=== PATIENT | female | born 2000 | race Caucasian/White ===

== ENCOUNTER 2020-10-19 22:08 | Emergency (ER) | payer MEDICAID, SELFPAY ==
[2020-10-19 22:10] VITALS: BP 144/107; PULSE 100; RESP 18; TEMP 37.1; O2SAT 97; BMI 32.8
--- NOTE | 2020-10-19 22:25 | XR_ITS ---
PROCEDURE INFORMATION: Exam: XR Left Wrist Exam date and time: 10/19/2020 10:25 PM Age: 20 years old Clinical indication: Injury or trauma; Fall; Blunt trauma (contusions or hematomas); Injury date: 10/19/2020; Injury details: Fell off horse pain left wrist; Patient HX: Fell pain left wrist TECHNIQUE: Imaging protocol: XR Left wrist. Views: 3 or more views. COMPARISON: No relevant prior studies available. FINDINGS: Bones/joints: Normal. Soft tissues: Normal. IMPRESSION: No acute findings.
--- NOTE | 2020-10-19 22:34 | [facility].EDUPEXT ---
ED Disposition Clinical Impression: Left wrist sprain Qualifiers: Encounter type: initial encounter Qualified Code(s): S63.502A - Unspecified sprain of left wrist, initial encounter Disposition: Home, Self-Care Condition on Discharge: Good Instructions: DI for Wrist Strain Additional Instructions: advil/tyenol and see pcp for follow up Referrals: Provider,Blake, [Primary Care Provider] - Koko Arce MD [Staff Physician] - - Critical Care Critical Care Time: No Attestation: On 10/19/20, the high probability of a clinically significant, sudden or life threatening deterioration of the following system(s) required my full and direct attention, intervention and personal management. The time I documented below is in addition to time spent performing reported procedures but includes the following listed in this critical care notation. Medical Decision Making - Medical Records Medical records reviewed: Yes: I reviewed the patient's medical records. - Tom Inquiry Pt receiving controlled substance: No Vital Signs: 10/19/20 22:10 Temperature 98.8 F Temperature Source Oral Pulse Rate [Right] 100 H Respiratory Rate 18 Blood Pressure [Right Arm] 144/107 H Blood Pressure Mean [Right Arm] 119 02 Sat by Pulse Oximetry 97 - Radiology Data #1 Image(s): Wrist Image Reviewed: Yes I reviewed the patient's radiology image, Yes I have reviewed radiologist's interpretation Preliminary Findings: No Fracture Seen Medical Decision Narrative: no fx and will wear splint and advil/tyenol and see pcp for follow up Upper Extremity HPI - General Chief Complaint: Extremity Injury, Upper Stated Complaint: AO 10/19@2100 fell off horse L arm injury\ Time Seen by Provider: 10/19/20 22:30 Mode of Arrival: Ambulatory Source of Information: Patient, Medical Record Limitations: No Limitations Description of Symptoms (Recalled from ER Triage Doc. by RN): pt state fell off horse and and landed with lt wrist out pt c/o lt wrist pain - History of Present Illness HPI narrative: fell off horse with lt wrist injury - no other c/o MD complaint: injury to: left, wrist Onset (ago): hour(s) Other Extremity Injury: Left: wrist Other injuries: none Handedness: right Place: home Severity: moderate Context: fall Associated symptoms: denies other symptoms - Related Data Home Medications Medication Instructions Recorded Confirmed No Known Home Medications 10/19/20 10/19/20 Allergies Allergy/AdvReac Type Severity Reaction Status Date / Time amoxicillin [From Augmentin] Allergy Verified 10/19/20 22:24 clavulanic acid Allergy Verified 10/19/20 22:24 [From Augmentin] [facility] History - Hepatitis A Screen Drug use history?: No High risk sexual behaviors?: No History of sexually transmitted infection?: No Currently employed?: No Childcare worker?: No Do you have indoor plumbing?: No Do you have electricity?: No Attestation statement:: This patient has been screened for Hepatitis A risk factors. I have reviewed the patient's past medical history: Yes - Social History Alcohol Intake: never Occupational Status: employed ROS Obtained: Yes All systems reviewed & no additional complaints - Constitutional Constitutional: Denies fever(s) - Eyes Eyes: Denies change in vision - ENT Ears, Nose, Mouth, and Throat: Denies sore throat - Cardiovascular Cardiovascular: Denies chest pain - Respiratory Respiratory: Denies cough - Gastrointestinal Gastrointestingal: Denies: abdominal pain - Genitourinary Female Genitourinary: Denies abnormal vaginal bleeding - Musculoskeletal Musculoskeletal: Reports as per HPI, Reports joint pain, Denies deformity, Reports joint swelling, Reports limited range of motion - Integumentary/Breasts Skin/Breast: Denies rash - Neurologic Neurologic: Denies focal weakness Physical Exam - General General appearance: alert - Head Head exam: no
[2020-10-20 00:06] VITALS: BP 125/75; PULSE 83; RESP 18; TEMP 36.8; O2SAT 98
== END 2020-10-20 00:07 | disposition home or self-care (01) ==
PROVIDERS: Emergency Provider Emergency Medicine
DX: S63.502A Unspecified sprain of left wrist, initial encounter (principal); V80.010A Animal-rider injured by fall from or being thrown from horse in noncollision accident, initial encounter; Y92.89 Other specified places as the place of occurrence of the external cause
CPT/HCPCS: 29125; 73110; 99282